=== PATIENT | male | born 1985 | race Caucasian/White ===

== ENCOUNTER 2022-07-16 13:46 | Emergency (ER) | payer OTHER, SELFPAY ==
--- NOTE | ~2022-07-16 | XR_ITS ---
EXAMINATION: XR ankle RT min 3V DATE: 07/16/2022 14:07 INDICATION: Right ankle injury and pain and swelling. TECHNIQUE: 3 views of right ankle were obtained. COMPARISON: None. FINDINGS: There is a comminuted fracture of distal tibia involving the plafond and medial malleolus. A coronal fracture component extends from the tibial plafond to the distal diaphysis. There is a 3 mm fracture gap at the articular surface. There is a comminuted fracture of lateral malleolus. The dist al fracture fragment demonstrates impaction. There is an osteochondral lesion of lateral talar dome. There are enthesophytes at the posterior and plantar aspects of calcaneal tuberosity. IMPRESSION: 1. Comminuted fractures of distal tibia and lateral malleolus. 2. Osteochondral lesion of lateral talar dome. Reviewed, dictated and finalized at location A.
[2022-07-16 13:53] VITALS: BP 151/91; PULSE 115; RESP 18; TEMP 35.8; O2SAT 97
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
--- NOTE | 2022-07-16 14:21 | ECG_ITS ---
Measurements Intervals [place] Rate: 112 P: 30 DC: 168 QRS: 1 QRSD: 111 T: 9 QT: 337 QTc: 460 Interpretive Statements SINUS TACHYCARDIA INTRAVENTRICULAR CONDUCTION DELAY POOR R WAVE PROGRESSION, ANTERIOR LEADS BORDERLINE T WAVE ABNORMALITY- INFERIOR LEADS BASELINE ARTIFACT- II, III, AVL, AVF, V4-V6 ABNORMAL ECG NO PREVIOUS ECG AVAILABLE FOR COMPARISON Electronically Signed On 07-16-2022 21:26:30 CDT by Teddy Ko D.O.
[2022-07-16 15:53] VITALS: BP 149/87; PULSE 87; RESP 20; TEMP 36.4; O2SAT 98
== END 2022-07-16 16:26 | disposition home or self-care (01) ==
PROVIDERS: Emergency Provider Family Medicine
DX: S82.301A Unspecified fracture of lower end of right tibia, initial encounter for closed fracture (principal); S82.61XA Displaced fracture of lateral malleolus of right fibula, initial encounter for closed fracture; V49.88XA Car occupant (driver) (passenger) injured in other specified transport accidents, initial encounter; Y92.411 Interstate highway as the place of occurrence of the external cause
CPT/HCPCS: 29515; 73610; 93005; 99284